=== PATIENT | male | born 1935 | race African-American/Black ===

== ENCOUNTER 2016-12-05 10:32 | Emergency (ER) | payer OTHER ==
[~2016-12-05] VITALS: Ht 175.3 cm; Wt 68.0 kg
[~2016-12-05 10:32] MED LIST: CIPR500T4 PO; GLUCTAB PO; GLYB1TAB51 PO; PROT40TA PO
[2016-12-05 10:35] VITALS: BP 179/98; PULSE 98; RESP 14; TEMP 98.4; O2SAT 98
[2016-12-05] MEDS ORDERED: BACT800T5 PO (10:55)
[2016-12-05] MEDS ORDERED: CEPH-460 PO (10:55)
[2016-12-05] MEDS ORDERED: HYDR-3533 PO (10:55)
[2016-12-05] MEDS ORDERED: METF500T PO (10:56)
--- NOTE | 2016-12-05 10:59 | PD ---
HPI Chief Complaint: Skin Problem Time Seen by Provider: 10:55 Travel History International Travel<30 days: No Contact w/Intl Traveler<30days: No Traveled to known affect area: No History of Present Illness HPI 81 yo male with rash to the back. Has had this for a week. Painful. 04/08. No radiation. no injury. history of Diabetes and compliant. No fevers, chills or sweats. No injuries or surgeries. Located on the mid left back. No other complains. PFSH Past Medical History Cancer: No Cardiovascular Problems: No Diabetes: Yes Diminished Hearing: No Endocrine: Yes Genitourinary: Yes Immune Disorder: No Musculoskeletal: No Neurologic: No Psychiatric: No Reproductive: No Respiratory: No Social History Alcohol Use: No Tobacco Use: No Substance Use: No Allergies-Medications (Allergen,Severity, Reaction): Coded Allergies: No Known Allergies (Verified , 12/26/14) Reported Meds & Prescriptions Reported Meds & Active Scripts Active Cipro (Ciprofloxacin HCl) 500 Mg Tab 500 Mg PO BID Reported Protonix (Pantoprazole Sodium) 40 Mg Tabdr 40 Mg PO BID Metformin Hcl (Metformin HCl) 500 Mg Tab 500 Mg PO BID Diabeta (Glyburide) 5 Mg Tab 5 Mg PO DAILY Review of Systems Except as stated in HPI: all other systems reviewed are Neg Physical Exam Narrative GENERAL: SKIN: Warm and dry. Patient has an indurated area that is mobile and erythematous on the left mid back. No obvious purulence noted. Slightly warm to touch. Slightly painful to touch. No lymphadenopathy. No vesicles or herpetic like rash noted. HEAD: Atraumatic. Normocephalic. EYES: Pupils equal and round. No scleral icterus. No injection or drainage. ENT: No nasal bleeding or discharge. Mucous membranes pink and moist. NECK: Trachea midline. No JVD. CARDIOVASCULAR: Regular rate and rhythm. RESPIRATORY: No accessory muscle use. Clear to auscultation. Breath sounds equal bilaterally. GASTROINTESTINAL: Abdomen soft, non-tender, nondistended. Hepatic and splenic margins not palpable. MUSCULOSKELETAL: Extremities without clubbing, cyanosis, or edema. No obvious deformities. NEUROLOGICAL: Awake and alert. No obvious cranial nerve deficits. Motor grossly within normal limits. Five out of 5 muscle strength in the arms and legs. Normal speech. PSYCHIATRIC: Appropriate mood and affect; insight and judgment normal. Data Data Last Documented VS Vital Signs Date Time Temp Pulse Resp B/P Pulse Ox O2 Delivery O2 Flow Rate FiO2 12/05/16 10:35 98.4 98 14 179/98 98 MDM Medical Decision Making Medical Screen Exam Complete: Yes Emergency Medical Condition: Yes Medical Record Reviewed: Yes Differential Diagnosis Cellulitis versus infected cyst versus lipoma Narrative Course 81-year-old male that presents to the ED for evaluation of rash. Patient was properly examined and was found to have signs and symptoms consistent with appears to be an infected possible early abscess. At this time does not appear to have any purulence in it. He is very hard and mobile. Could be an infected cyst. At this time I recommend antibiotics to cover for infection. I do not recommend incision and drainage. I recommended warm compresses. Patient was given Lortab for pain. Bactrim and Keflex. Told that if in the next 48 hours does not improve he needs to come back to get it once. Otherwise follow with PCP. See ED if worsening symptoms. Patient is agreeable with plan. Diagnosis Primary Impression: Cellulitis Qualified Code: L03.818 - Cellulitis of other specified site Patient Instructions: General Instructions Additional Instructions: Take medications as prescribed. Follow-up with PCP. See ED for any worsening symptoms. Do not drink or drive while taking pain medication. Apply ice or heat as needed for pain Med/Other Pt SpecificInfo: Prescription(s) given Scripts Cephalexin (Keflex)500 Mg Nau422 Mg PO Q6H 10 Days Prov:Newton Dover MD 12/05/16 Hydrocodone-Acetaminophen (Lortab)5-325 Mg Tab1 Tab PO Q6H PRN (PAIN) #10 TAB Prov:Newton Dover MD 12/05/16 Sulfamethoxazole-Trimethoprim (Bactrim DS)800-160 Mg Tab1 Tab PO BID 10 Days Prov:Newton Dover MD 12/05/16 Disposition: 01 DISCHARGE HOME Condition: Stable Juan Pablo Ambrose Dec 05, 2016 10:59
== END 2016-12-05 11:27 | disposition home or self-care (01) ==
LOC: NETRI 10:32
DX: L03.312 Cellulitis of back [any part except buttock and flank] (principal)
CPT/HCPCS: 99283